=== PATIENT | male | born 1990 | race Caucasian/White ===

== ENCOUNTER 2017-03-25 01:28 | Emergency (ER) | payer BC ==
[~2017-03-25] VITALS: Ht 182.9 cm; Wt 81.6 kg
[~2017-03-25 01:28] MED LIST: KEFLEX 500MG.500 MG PO; NOVOLIN 70/30 710 ML SC
--- NOTE | 2017-03-25 01:57 | Emergency Room Report ---
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 N Clinical Suspician of Infection? N Mental Status: 1 - Regular (Normal Baseline) Sepsis Risk:Low Sepsis Risk Have you (or family members/close friends) recently traveled outside the [place]? N If Yes, where/when: Have you had exposure to infectious disease within the past month? N TB? Other? Specify: Source patient, RN notes reviewed, family, old records Exam Limitations no limitations Comment jamesok rt thumb tonight Cardiac Chest Pain Chest pain indicative of cardiac No Timing/Duration this evening Severity moderate ALLERGIES Coded Allergies: No Known Allergies (10/11/16) Home Medications Reported Medications INSULIN NPH HUM/REG INSULIN HM (Novolin 70-30 100 Unit/Ml Vial) 30 UNITS SC BID History Medical History General CAD? No Angina: No GA: No Hypertension? No Hyperlipidemia? No CHF? No DVT? No PE? No COPD? No Asthma? No Anemia? No GERD? No Gastric ulcers? No GI Bleed? No Hernia? No Thyroid Problems? No Hypothyroidism? No CVA? No Seizures? 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 No Renal Insuffiency? No End Stage Renal Disease? No UTI? No Stones? No BPH? No GB Disease: No Nephritic Syndrome? No Asplenia? No Hepatitis? No Sickle Cell Disease? No Arthritis? No Migraines? No Cataracts? No Glaucoma? No MRSA? No HIV? No TB? No Anxiety? No Depression? No Cancer? No Immunization Hx DT/Tetanus 1-4 Years Ago Surgical Hx Previous Surgery?N Social History Smoking Hx Smoker: Current Every Day Smoker Tobacco: Yes Type Cigarettes Packs/day < 1 Pack Alcohol Alcohol: Yes Drugs none Review of Systems All Other Systems Reviewed and Negative Constitutional denies fever Eyes denies drainage ENT denies: ear pain, epistaxis, throat pain. Respiratory denies cough, denies shortness of breath, denies wheezing Cardiovascular denies chest pain, denies syncope Gastrointestinal denies abdominal pain, denies diarrhea, denies vomiting Genitourinary denies: dysuria, frequency, hesitancy, hematuria. Musculoskeletal see HPI, denies back pain, joint pain, denies joint swelling, denies neck pain, other Skin denies rash Psychiatric/Neurological denies headache, denies seizure Physical Exam Vital Signs Vital Signs Date Time Temp Pulse Resp B/P Pulse O2 O2 Flow FiO2 Ox Delivery Rate 03/25 0144 97.8 96 18 105/60 99 - WBC >12,000 or <4,000 or 10% bands? 2 or more SIRS Criteria Met? B/P:105/60 MAP:75 Creatinine >2.0? UA output<0.5ml/kg/hr for 2 hrs? Platelet count >100,000? Lactate >2.0mmol/1? INR >1.2 or PTT > than 60 sec? Evidence of Organ Dysfunction? Provider documented clinical suspician of infection? N Sepsis Criteria Count: 1 Sepsis Risk: Low Sepsis Risk General Appearance no apparent distress Eye Exam - bilateral eye PERRL, bilateral eye EOMI Ear, Nose, Throat normal ENT inspection Neck supple Respiratory Status No: respiratory distress. 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 No Results/Orders Current Medication Orders Sig/Yonas Start time Last Medication Dose Route Stop Time Status Admin Lidocaine HCl 20 ML ONCE ONE 03/25 215 DC 03/25 SC 03/25 216 020 Lidocaine HCl 0 .STK-MED ONE 03/25 202 DC .ROUTE Procedures FB Removal (excluding Eyes) FB Removal Risks/benefits discussed with pt/guardian? Yes Location/Suspected object rt thumb/fishhook Anesthesia Lidocaine 1% Foreign Body (Not Eyes) Remove Simple. No: Complicated, Probing, Incision & Search, Cerumen spatula used, Irrigation ml-, Xray, No FB identified, Sterile dressing applied. Risk of retained FB explained to pt/guardian? Yes Departure Departure Time of Disposition 215 Disposition DC Home or Self Care(routine) Clinical Impression Primary Impression: Foreign body of thumb, right Condition STABLE Patient Instructions DI for Cellulitis -- Adult Additional Instructions keep clean and see pcp for follow up Discharge Counseling Counseled pt/family regarding diagnosis, medications/RX, follow up needs Prescriptions Current Visit Scripts CEPHALEXIN (Keflex 500MG Capsule) 500 MG PO Q8H #30 CAP SULFAMETHOXAZOLE/TRIMETHOPRIM (Sulfamethoxazole-Tmp Ds Tablet) 1 TAB PO BID #20 TAB ED Critical Care Critical Care No at 0223
[2017-03-25] MEDS ORDERED: KEFLEX 500MG.500 MG PO (02:21)
[2017-03-25] MEDS ORDERED: SEPTRA DS 800 M1 TAB PO (02:21)
[2017-03-25 02:32] VITALS: BP 121/79
--- OUTSIDE RECORDS SUMMARY | 2017-03-26 21:49 | External Medical Summary Rpt ---
Author Author , Organization [employer] Address Unknown Phone Unavailable Care Team Providers Care Hvac R Tech Name Role Phone [facility] Unavailable Unavailable APOTHECAR, [facility] Unavailable Unavailable MEDICAL CTR, [facility] IMTIAZ MILLER, Unavailable Unavailable IMTIAZ MILLER KEITH A, Unavailable Unavailable LUAN RODRIGUEZ SU, BRIONNA, SU, BRIONNA Unavailable Unavailable ASHLEY CHAN II, Unavailable Unavailable ASHLEY CHAN II, THOMAS J, Unavailable Unavailable RADHA GUERRERO [id number], Unavailable Unavailable [id number] [facility], Unavailable Unavailable [facility] VIOLET BLACK, Unavailable Unavailable VIOLET BLACK JEEMERITA [facility] Unavailable Unavailable HOSP, [facility] ROBERT KRISHNA, Unavailable Unavailable ROBERT KRISHNA [facility] Unavailable [facility], Unavailable Unavailable [facility] ROBERT PEARCE, Unavailable Unavailable ROBERT PEARCE Purpose Continuity of Care Document - 11-04-2008 through 2016 Problems Code Diagnosis DOS Provider Status 8820 OPEN WOUND 05-03-[address] [facility] ALONE W/O MENTION COMP E9203 ACCIDENT 05-02-2010 [facility] CAUSED BY N EMERGENCY KNIVES PHYS INC SWORDS AND DAGGERS 4611 ACUTE 03-26-2010 [facility] FRONTAL G [facility] SINUSITIS MEDICINE CTR 31372 ESOPHAGEAL 03-10-2010 [facility] REFLUX G [facility] MEDICINE CTR 5368 DYSPEPSIA&O 03-10-2010 [facility] THER SPEC G FAMILY DISORDERS MEDICINE FUNCTION CTR STOMACH 06697 UNS 01-19-2010 [facility] GASTRITIS&G G FAMILY ASTRODUODIT MEDICINE IS W/O CTR MENTION HEMORR 4619 ACUTE 10-19-2009 [facility] SINUSITIS, G FAMILY UNSPECIFIED MEDICINE CTR 4871 INFLUENZA 08-20-2009 [facility] WITH OTHER COMM[facility]ITY RESPIRATORY HOSP MANIFESTATI ONS 4878 INFLUENZA 08-20-2009 [facility] WITH OTHER G FAMILY MANIFESTATI MEDICINE ONS CTR 73351 ABDOMINAL 04-24-2009 RAMSES PAIN, MEDICAL UNSPECIFIED GROUP SITE 23106 PAIN IN 04-12-2009 JELANI JOINT, RADIOLOGY FOREARM 65999 NAUSEA 04-12-2009 [facility] ALONE N EMERGENCY PHYS INC 33406 OPEN WOUND 04-12-2009 [facility] WRIST REGIONAL WITHOUT MEDICAL CTR MENTION COMPLICATIO N 9593 INJURY 04-12-2009 [facility] OTHER&UNSPE N EMERGENCY CIFIED PHYS INC ELBOW FOREARM&WRI ST E8498 OTHER 04-12-[address] OF MEDICAL CTR OCCURRENCE E9060 DOG BITE 04-12-2009 [facility] N EMERGENCY PHYS INC 462 ACUTE 03-12-2009 [facility]NG[facility]IS [facility] 70170 NAUSEA WITH 02-10-2009 [facility] VOMITING [facility] ACCT 67837 DIARRHEA 02-10-2009 DHS/CO [facility] ACCT 7862 COUGH 11-13-2008 [facility] S60.351A SUPERFICIAL FOREIGN BODY OF RIGHT THUMB, INITIAL ENCOUNTER S61.219A LACERATION W/O FB OF UNSP FINGER W/O DAMAGE TO NAIL, INIT Medications Na ND Rx Da Fi Fi Am Da Di Ph RX Ph St me C No te ll ll ou ys ag ar # ys at rm s nt no ma ic us Or Da si cy ia de te s n re d NA 53 06 06 14 7 FA 69 CL Ac OR 74 -0 -0 .0 LL 87 IF ti OX 60 7- 8- 00 S 82 TO ve EN 19 20 20 RO N 00 10 10 AD KE 50 5 IT 0 PH H MG AR A MA TA CY BL ET CE 00 06 06 12 3 FA 69 CL Ac PH 14 -0 -0 .0 LL 87 IF ti AL 39 7- 8- 00 S 80 TO ve EX 89 20 20 RO N IN 70 10 10 AD KE 5 IT 50 PH H 0 AR A MG MA CY CA PS UL E OR 37 04 04 2 60 30 WH 61 HE Ac IL 00 -1 -1 .0 IT 61 NS ti OS 00 4- 4- 00 LE 27 ON ve EC 45 20 20 Y 50 10 10 PH PA OT 2 AR UL C MA C 20 CY .6 MG TA BL ET 00 04 04 2 60 30 WH 61 HE Ac 59 -1 -1 .0 IT 61 NS ti 12 4- 4- 00 LE 26 ON ve 22 20 20 Y 90 10 10 PH PA 1 AR UL MA C CY OR 00 02 03 1 30 5 WH 60 HE Ac OM 59 -2 -2 .0 IT 87 NS ti ET 15 3- 9- 00 LE 99 ON ve JACOBSON 30 20 20 Y ZI 71 10 10 PH PA NE 0 AR UL MA C 25 CY MG TA BL ET 60 11 12 00 24 7 WH 59 DO Ac 25 -2 -0 0. IT 67 NC ti 80 3- 3- 00 LE 20 ve 23 20 20 0 Y TE 91 09 09 PH R 6 AR TH MA OM CY J CE 68 11 12 00 30 10 WH 59 DO Ac PH 18 -2 -0 .0 IT 67 NC ti AL 00 3- 3- 00 LE 19 ve EX 12 20 20 Y TE IN 20 09 09 PH R 2 AR TH 50 MA OM 0 CY MG J CA PS UL E CI 00 09 10 00 7. 30 WH 58 HE Ac OR 06 -2 -0 50 IT 81 NS ti OD 58 5- 8- 0 LE 10 ON ve EX 53 20 20 Y 30 09 09 PH PA OT 2 AR UL IC MA C CY WALKER SP EN SI ON 53 09 10 00 60 15 WH 58 HE Ac 74 -2 -0 .0 IT 81 NS ti 60 5- 8- 00 LE 08 ON ve 13 20 20 Y 20 09 09 PH PA 5 AR UL MA C CY 60 09 10 00 18 7 WH 58 HE Ac 25 -2 -0 0. IT 81 NS ti 80 5- 8- 00 LE 09 ON ve 23 20 20 0 Y 91 09 09 PH PA 6 AR UL MA C CY AM 00 05 06 00 15 5 WH 57 MA Ac OX 09 -1 -0 .0 IT 13 RC ti -C 32 8- 4- 00 LE 50 UM ve LA 27 20 20 Y V 43 09 09 PH CH 50 4 AR AR 0- MA LE 12 CY S 5 L MG TA BL ET 00 05 06 00 20 20 WH 57 HE Ac 30 -2 -0 .0 IT 30 NS ti 03 8- 4- 00 LE 20 ON ve 04 20 20 Y 61 09 09 PH PA 3 AR UL MA C CY 00 04 05 00 14 14 BA 60 HE Ac 30 -1 -0 .0 PI 46 NS ti 03 6- 7- 00 TS 00 ON ve 70 20 20 T 3 20 09 09 RE PA 1 GI UL ON C AL AP OT HE CA RY 00 03 04 00 30 15 BA 60 HE Ac 09 -2 -0 .0 PI 45 NS ti 51 6- 9- 00 TS 05 ON ve 29 20 20 T 1 00 09 09 RE PA 6 GI UL ON C AL AP OT HE CA RY 00 03 04 00 30 30 BA 60 HE Ac 30 -2 -0 .0 PI 45 NS ti 03 6- 9- 00 TS 05 ON ve 04 20 20 T 2 61 09 09 RE PA 3 GI UL ON C AL AP OT HE CA RY CE 00 03 04 00 20 10 BA 60 HE Ac FP 09 -2 -0 .0 PI 45 NS ti RO 31 6 9 00 TS 04 ON ve ZI 07 20 20 T 9 L 85 09 09 RE PA 50 3 GI UL 0 ON C MG AL TA AP BL OT ET HE CA RY 49 03 04 00 16 30 BA 60 HE Ac 88 -2 -0 .0 PI 45 NS ti 40 6 9 00 TS 05 ON ve 39 20 20 T 0 87 09 09 RE PA 7 GI UL ON C AL AP OT HE CA RY ME 59 12 [address] 16 CO Ac TH 74 -2 -0 .0 IV 81 BB ti YL 60 6- 1- 00 E- 85 ve OR 00 20 20 IN 9 AM ED 10 08 09 -P Y NI 3 JACOBSON SO RM LO AC NE Y 4 MG DO SE PK FL 00 12 [address] 16 BA Ac UT 05 -1 -1 .0 IV 80 RG ti IC 43 0- 8- 00 E- 53 O ve 27 20 20 IN 2 BA ON 08 04 08 -P RB E 9 JACOBSON AR OR RM A OP AC R Y 50 MC G SP RA Y 60 12 [address] 16 BA Ac 25 -1 -1 0. IV 80 RG ti 80 0- 8- 00 E- 53 O ve 23 20 20 0 IN 3 BA 91 08 08 -P RB 6 JACOBSON AR RM A AC R Y 00 12 [address] 16 BA Ac 02 -1 -1 .0 IV 80 RG ti 96 0- 8- 00 E- 53 O ve 09 20 20 IN 4 BA 66 08 08 -P RB 0 JACOBSON AR RM A AC R Y Procedures Procedure DOS Code Location Performer Comment SIMPLE 16956 [facility] REPAIR 0 REGIONAL REGIONAL SCALP/NEC MEDICAL MEDICAL K/AX/TEE CTR CTR T/TRUNK 2.5CM/< CLOSURE 8659 [facility] AMISH SKIN&SUBC 0 REGIONAL REGIONAL UTANEOUS MEDICAL MEDICAL [place] [address] [facility] INFLUENZA 9 COMMUNITY COMMUNITY A/B EACH HOSP HOSP HPYLORI 48991 RAMSES PEARCE, BREATH 9 MEDICAL ROBERT Carrington ANAL GROUP UREASE ACT NON-RADAC T ISTOPE HPYLORI 83334 RAMSES PEARCE, DRUG 9 MEDICAL ROBERT H ADMINISTR GROUP ATION RADEX 97111 JELANI CHAN WRIST 9 RADIOLOGY II, COMPLETE ASHLEY T MINIMUM 3 VIEWS IAADIADOO 34675 [facility] 9 [facility] CCUS GROUP A IAADIADOO 50368 [facility] 9 [facility] CCUS GROUP A COLLECTIO 97577 [facility] N VENOUS 9 [facility] BLOOD [facility]OSP HOSP VENIPUNCT URE ANTIBODY 48037 [facility] HELICOBAC [address] [place] [address] [facility] INFLUENZA 9 COMMUNITY COMMUNITY A/B EACH HOSP HOSP RADIOLOGI 75731 BRIONNA DOHERTY EXAM 8 NDON CHEST 2 MEDICAL VIEWS ASSOCIATE FRONTAL&L S ATERAL Encounters Encounter Start End Date Code Location Performer Type Date EMERGENCY 75947 [facility] 0 0 REGIONAL [facility] MEDICAL T VISIT CTR MODERATE SEVERITY HOSPITAL [facility] - 0 [facility] OFFICE 87472 ZARA LANGFORDPATIEN 0 0 URG , RADHA T VISIT FAMILY J 15 MEDICINE MINUTES CTR OFFICE 18046 SHAKIRA DUARTE 0 0 URG VIOLET C T VISIT FAMILY 15 MEDICINE MINUTES CTR OFFICE 10410 SHAKIRA DUARTE 0 0 URG VIOLET C T VISIT FAMILY 15 MEDICINE MINUTES CTR OFFICE 55285 ZARA ROSENBERG 9 9 URG , RADHA T VISIT FAMILY J 10 MEDICINE MINUTES CTR OFFICE 60235 SHAKIRA DUARTE 9 9 URG VIOLET C T VISIT FAMILY 15 MEDICINE MINUTES [facility] H[facility]PITAL JELL[facility] - OTHER 9 9 COMMUNITY HOSP OFFICE 15052 SHAKIRA DUARTE 9 9 URG VIOLET C T VISIT FAMILY 15 MEDICINE MINUTES [facility] H[facility]PITAL AMISH - 9 9 REGIONAL OUTPATIEN MEDICAL T [facility] 8[address] [facility] 9 [facility] EMERGENCY T VISIT PHYS INC MODERATE SEVERITY OFFICE 55435 SHAKIRA DUARTE 9 9 URG VIOLET C T VISIT FAMILY 15 MEDICINE MINUTES [facility] JELLICO - 9 9 COMMUNITY OUTPATIEN HOSP T [facility] JELLICO - 9 9 COMMUNITY OUTPATIEN HOSP T OFFICE 88844 SHAKIRA DUARTE 9 9 URG VIOLET C T VISIT FAMILY 15 MEDICINE MINUTES CTR OFFICE 98140 DHS/CO ANGÉLICA OUTPATIEN 9 9 HEALTH CO HIGH T VISIT [employer] 15 BANK ACCT MINUTES OFFICE 00665 BRIONNA DOHERTY OUTPATIEN 8 8 NDON T VISIT MEDICAL 15 ASSOCIATE MINUTES S OFFICE 35386 SHAKIRA NICK 8 8 NDON IMTIAZ Melara NEW 30 MEDICAL MINUTES ASSOCIATE S
--- OUTSIDE RECORDS SUMMARY | 2017-03-26 21:49 | External Medical Summary Rpt ---
Author Author , Organization [employer] Address Unknown Phone Unavailable Care Team Providers Care Cardiac Nurse Name Role Phone [facility] Unavailable Unavailable APOTHECAR, [facility] Unavailable Unavailable MEDICAL CTR, [facility] IMTIAZ MILLER, Unavailable Unavailable IMTIAZ MILLER KEITH A, Unavailable Unavailable LUAN RODRIGUEZ SU, BRIONNA, SU, BRIONNA Unavailable Unavailable ASHLEY CHAN II, Unavailable Unavailable ASHLEY CHAN II, THOMAS J, Unavailable Unavailable RADHA GUERRERO [id number], Unavailable Unavailable [id number] [facility], Unavailable Unavailable [facility] VIOLET BLACK, Unavailable Unavailable VIOLET BLACK JEEMERITA [facility] Unavailable Unavailable HOSP, [facility] ROBERT KRISHNA, Unavailable Unavailable ROBERT KRISHNA [facility] Unavailable [facility], Unavailable Unavailable [facility] ROBERT PEARCE, Unavailable Unavailable ROBERT PEARCE Purpose Continuity of Care Document - 11-04-2008 through 2016 Problems Code Diagnosis DOS Provider Status 8820 OPEN WOUND 05-03-2010 [facility] CTR ALONE W/O MENTION COMP E9203 ACCIDENT 05-02-2010 [facility] CAUSED BY N EMERGENCY KNIVES PHYS INC SWORDS AND DAGGERS 4611 ACUTE 03-26-2010 [facility] FRONTAL G FAMILY SINUSITIS MEDICINE CTR 98318 ESOPHAGEAL 03-10-2010 [facility] REFLUX G FAMILY MEDICINE CTR 5368 DYSPEPSIA&O 03-10-2010 [facility] THER SPEC G FAMILY DISORDERS MEDICINE FUNCTION CTR STOMACH 52279 UNS 01-19-2010 [facility] GASTRITIS&G G FAMILY ASTRODUODIT MEDICINE IS W/O CTR MENTION HEMORR 4619 ACUTE 10-19-2009 [facility] SINUSITIS, G FAMILY UNSPECIFIED MEDICINE CTR 4871 INFLUENZA 08-20-2009 [facility] WITH OTHER COMMUNITY RESPIRATORY HOSP MANIFESTATI ONS 4878 INFLUENZA 08-20-2009 [facility] WITH OTHER G FAMILY MANIFESTATI MEDICINE ONS CTR 33552 ABDOMINAL 04-24-2009 [facility] PAIN, MEDICAL UNSPECIFIED GROUP SITE 43034 PAIN IN 04-12-2009 JELANI JOINT, RADIOLOGY FOREARM 87597 NAUSEA 04-12-2009 [facility] ALONE N EMERGENCY PHYS INC 89181 OPEN WOUND 04-12-2009 [facility] WRIST REGIONAL WITHOUT MEDICAL CTR MENTION COMPLICATIO N 9593 INJURY 04-12-2009 [facility] OTHER&UNSPE N EMERGENCY CIFIED PHYS INC ELBOW FOREARM&WRI ST E8498 OTHER 04-12-[address] OF MEDICAL CTR OCCURRENCE E9060 DOG BITE 04-12-2009 [facility] N EMERGENCY PHYS INC 462 ACUTE 03-12-2009 [facility] 82214 NAUSEA WITH 02-10-2009 DHS/CO VOMITING [facility] ACCT 88348 DIARRHEA 02-10-2009 DHS/CO [facility] ACCT 7862 COUGH 11-13-2008 [facility] [...] 06 14 7 FA 69 CL Ac OH 74 -0 -0 .0 LL 87 IF [...] MG MA CY CA PS UL E OH 37 04 04 2 60 30 WH [...] PA 1 AR UL MA C CY OH 00 02 03 1 30 5 WH [...] 00 7. 30 WH 58 HE Ac OH 06 -2 -0 50 IT 81 NS [...] 60 6- 1- 00 E- 85 ve OH 00 20 20 IN 9 AM ED [...] 08 -P RB E 9 JACOBSON AR OH RM A OP AC R Y 50 [...] Procedure DOS Code Location Performer Comment SIMPLE 54743 ALEVISM ALEVISM REPAIR 0 REGIONAL REGIONAL SCALP/NEC MEDICAL MEDICAL K/AX/TEE CTR CTR T/TRUNK 2.5CM/< CLOSURE 8659 ALEVISM ALEVISM SKIN&SUBC 0 REGIONAL REGIONAL UTANEOUS MEDICAL MEDICAL [place]ISS[place] [address] [facility] JE[facility] INFLUENZA 9 COMMUNITY COMMUNITY A/B EACH HOSP HOSP HPYLORI 01966 RAMSES PEARCE, BREATH 9 MEDICAL ROBERT Carrington ANAL GROUP UREASE ACT NON-RADAC T ISTOPE HPYLORI 52909 RAMSES PEARCE, DRUG 9 MEDICAL ROBERT H ADMINISTR GROUP ATION RADEX 97013 JELANI CHAN WRIST 9 RADIOLOGY II, COMPLETE ASHLEY T MINIMUM 3 VIEWS IAADIADOO 79435 [facility] 9 [facility] CCUS GROUP A IAADIADOO 65150 [facility] 9 [facility] CCUS GROUP A COLLECTIO 49372 [facility] N VENOUS 9 [facility] BLOOD HOSP HOSP VENIPUNCT URE ANTIBODY 67900 [facility] HELICOBAC [address] [place] [address] [facility]LL[facility] INFLUENZA 9 COMMUNITY COMMUNITY A/B EACH HOSP HOSP RADIOLOGI 19627 BRIONNA DOHERTY EXAM 8 NDON CHEST 2 MEDICAL VIEWS ASSOCIATE FRONTAL&L S ATERAL Encounters Encounter Start End Date Code Location Performer Type Date EMERGENCY 54462 ALEVISM 0 0 REGIONAL [facility] MEDICAL T VISIT CTR MODERATE SEVERITY [facility]OSPITAL [facility] OFF[facility] 14054 ZARA LANGFORDPATIEN 0 0 URG , RADHA T VISIT FAMILY J 15 MEDICINE MINUTES CTR OFFICE 65140 SHAKIRA DUARTE 0 0 URG VIOLET C T VISIT FAMILY 15 MEDICINE MINUTES CTR OFFICE 72456 SHAKIRA DUARTE 0 0 URG VIOLET C T VISIT FAMILY 15 MEDICINE MINUTES CTR OFFICE 42480 ZARA ROSENBERG 9 9 URG , RADHA T VISIT FAMILY J 10 MEDICINE MINUTES CTR OFFICE 09840 SHAKIRA DUARTE 9 9 URG VIOLET C T VISIT FAMILY 15 MEDICINE MINUTES [facility] JELLICO - OTHER 9 9 COMMUNITY HOSP OFFICE 16237 SHAKIRA DUARTE 9 9 URG VIOLET C T VISIT FAMILY 15 MEDICINE MINUTES [facility] ALEVISM - 9 9 REGIONAL OUTPATIEN MEDICAL T [facility] EMERGENCY [address] [facility], 9 9 [facility] EMERGENCY T VISIT PHYS INC MODERATE SEVERITY OFFICE 97263 SHAKIRA DUARTE 9 9 URG VIOLET C T VISIT FAMILY 15 MEDICINE MINUTES [facility] JELLICO - 9 9 COMMUNITY OUTPATIEN HOSP T [facility] JELLICO - 9 9 COMMUNITY OUTPATIEN HOSP T OFFICE 36984 SHAKIRA DUARTE 9 9 URG VIOLET C T VISIT FAMILY 15 MEDICINE MINUTES CTR OFFICE 97703 DHS/CO ANGÉLICA OUTPATIEN 9 9 HEALTH CO HIGH T VISIT [employer] 15 BANK ACCT MINUTES OFFICE 69640 BRIONNA DOHERTY OUTPATIEN 8 8 NDON T VISIT MEDICAL 15 ASSOCIATE MINUTES S OFFICE 46066 SHAKIRA NICK 8 8 NDON IMTIAZ Melara NEW 30 MEDICAL MINUTES ASSOCIATE S
--- OUTSIDE RECORDS SUMMARY | 2017-03-26 21:50 | External Medical Summary Rpt ---
Author Author , Organization [employer] Address Unknown Phone Unavailable Care Team Providers Care Legal Service Specialist Name Role Phone [facility] Unavailable Unavailable [facility], [facility] Unavailable Unavailable [facility], [facility] IMTIAZ MILLER, Unavailable Unavailable IMTIAZ MILLER KEITH A, Unavailable Unavailable LUAN RODRIGUEZ SU, BRIONNA, SU, BRIONNA Unavailable Unavailable ASHLEY CHAN II, Unavailable Unavailable ASHLEY CHAN II, THOMAS J, Unavailable Unavailable RADHA GUERRERO [id number], Unavailable Unavailable [id number] [facility], Unavailable Unavailable [facility] VIOLET LBACK, Unavailable Unavailable VIOLET BLACK [facility] Unavailable Unavailable HOSP, [facility] ROBERT KRISHNA, Unavailable Unavailable ROBERT KRISHNA [facility] Unavailable [facility] ANGÉLICA [facility], Unavailable Unavailable [facility] ORBERT PEARCE, Unavailable Unavailable ROBERT PEARCE Purpose Continuity of Care Document - 11-04-2008 through 2016 Problems Code Diagnosis DOS Provider Status 8820 OPEN WOUND 05-03-2010 [facility] ALONE W/O MENTION COMP E9203 ACCIDENT 05-02-2010 [facility] CAUSED BY N EMERGENCY KNIVES PHYS INC SWORDS AND DAGGERS 4611 ACUTE 03-26-2010 [facility] FRONTAL G [facility] SINUSITIS MEDICINE CTR 60183 ESOPHAGEAL 03-10-2010 [facility] REFLUX G [facility] MEDICINE CTR 5368 DYSPEPSIA&O 03-10-2010 [facility] THER SPEC G FAMILY DISORDERS MEDICINE FUNCTION CTR STOMACH 85009 UNS 01-19-2010 [facility] GASTRITIS&G G FAMILY ASTRODUODIT MEDICINE IS W/O CTR MENTION HEMORR 4619 ACUTE 10-19-2009 [facility] SINUSITIS, G FAMILY UNSPECIFIED MEDICINE CTR 4871 INFLUENZA 08-20-2009 [facility] WITH OTHER COMM[facility]ITY RESPIRATORY HOSP MANIFESTATI ONS 4878 INFLUENZA 08-20-2009 [facility] WITH OTHER G FAMILY MANIFESTATI MEDICINE ONS CTR 41926 ABDOMINAL 04-24-2009 RAMSES PAIN, MEDICAL UNSPECIFIED GROUP SITE 64097 PAIN IN 04-12-2009 JELANI JOINT, RADIOLOGY FOREARM 01517 NAUSEA 04-12-2009 [facility] ALONE N EMERGENCY PHYS INC 12806 OPEN WOUND 04-12-2009 [facility] WRIST REGIONAL WITHOUT MEDICAL CTR MENTION COMPLICATIO N 9593 INJURY 04-12-2009 [facility] OTHER&UNSPE N EMERGENCY CIFIED PHYS INC ELBOW FOREARM&WRI ST E8498 OTHER 04-12-[address] OF MEDICAL CTR OCCURRENCE E9060 DOG BITE 04-12-2009 [facility] N EMERGENCY PHYS INC 462 ACUTE 03-12-2009 [facility] 61501 NAUSEA WITH 02-10-2009 [facility] VOMITING [facility] ACCT 67244 DIARRHEA 02-10-2009 [facility] ACCT 7862 COUGH 11-13-2008 [facility] Medications Na ND Rx Da Fi Fi Am Da Di Ph RX Ph St me C No te ll ll ou ys ag ar # ys at rm s nt no ma ic us Or Da si cy ia de te s n re d CE 00 06 06 12 3 FA 69 CL Ac PH 14 -0 -0 .0 LL 87 IF ti AL 39 7- 8- 00 S 80 TO ve EX 89 20 20 RO N IN 70 10 10 AD KE 5 IT 50 PH H 0 AR A MG MA CY CA PS UL E NA 53 06 06 14 7 FA 69 CL Ac CO 74 -0 -0 .0 LL 87 IF ti OX 60 7- 8- 00 S 82 TO ve EN 19 20 20 RO N 00 10 10 AD KE 50 5 IT 0 PH H MG AR A MA TA CY BL ET 00 04 04 2 60 30 WH 61 HE Ac 59 -1 -1 .0 IT 61 NS ti 12 4- 4- 00 LE 26 ON ve 22 20 20 Y 90 10 10 PH PA 1 AR UL MA C CY CO 37 04 04 2 60 30 WH 61 HE Ac IL 00 -1 -1 .0 IT 61 NS ti OS 00 4- 4- 00 LE 27 ON ve EC 45 20 20 Y 50 10 10 PH PA OT 2 AR UL C MA C 20 CY .6 MG TA BL ET CO 00 02 03 1 30 5 WH 60 HE Ac OM 59 -2 -2 .0 IT 87 NS ti ET 15 3- 9- 00 LE 99 ON ve JACOBSON 30 20 20 Y ZI 71 10 10 PH PA NE 0 AR UL MA C 25 CY MG TA BL ET CE 68 11 12 00 30 10 WH 59 DO Ac PH 18 -2 -0 .0 IT 67 NC ti AL 00 3- 3- 00 LE 19 ve EX 12 20 20 Y TE IN 20 09 09 PH R 2 AR TH 50 MA OM 0 CY MG J CA PS UL E 60 11 12 00 24 7 WH 59 DO Ac 25 -2 -0 0. IT 67 NC ti 80 3- 3- 00 LE 20 ve 23 20 20 0 Y TE 91 09 09 PH R 6 AR TH MA OM CY J 60 09 10 00 18 7 WH 58 HE Ac 25 -2 -0 0. IT 81 NS ti 80 5- 8- 00 LE 09 ON ve 23 20 20 0 Y 91 09 09 PH PA 6 AR UL MA C CY 53 09 10 00 60 15 WH 58 HE Ac 74 -2 -0 .0 IT 81 NS ti 60 5- 8- 00 LE 08 ON ve 13 20 20 Y 20 09 09 PH PA 5 AR UL MA C CY CI 00 09 10 00 7. 30 WH 58 HE Ac CO 06 -2 -0 50 IT 81 NS ti OD 58 5- 8- 0 LE 10 ON ve EX 53 20 20 Y 30 09 09 PH PA OT 2 AR UL IC MA C CY WALKER SP EN SI ON 00 05 06 00 20 20 WH 57 HE Ac 30 -2 -0 .0 IT 30 NS ti 03 8- 4- 00 LE 20 ON ve 04 20 20 Y 61 09 09 PH PA 3 AR UL MA C CY AM 00 05 06 00 15 5 WH 57 MA Ac OX 09 -1 -0 .0 IT 13 RC ti -C 32 8- 4- 00 LE 50 UM ve LA 27 20 20 Y V 43 09 09 PH CH 50 4 AR AR 0- MA LE 12 CY S 5 L MG TA BL ET 00 04 05 00 14 14 BA 60 HE Ac 30 -1 -0 .0 PI 46 NS ti 03 6- 7- 00 TS 00 ON ve 70 20 20 T 3 20 09 09 RE PA 1 GI UL ON C AL AP OT HE CA RY 49 03 04 00 16 30 BA 60 HE Ac 88 -2 -0 .0 PI 45 NS ti 40 6- 9- 00 TS 05 ON ve 39 20 20 T 0 87 09 09 RE PA 7 GI UL ON C AL AP OT HE CA RY CE 00 03 04 00 20 10 BA 60 HE Ac FP 09 -2 -0 .0 PI 45 NS ti RO 31 6- 9- 00 TS 04 ON ve ZI 07 20 20 T 9 L 85 09 09 RE PA 50 3 GI UL 0 ON C MG AL TA AP BL OT ET HE CA RY 00 03 04 00 [...] 60 6- 1- 00 E- 85 ve CO 00 20 20 IN 9 AM ED 10 08 09 -P Y NI 3 JACOBSON SO RM LO AC NE Y 4 MG DO SE PK 00 12 [address] 16 BA Ac 02 -1 -1 .0 IV 80 RG ti 96 0- 8- 00 E- 53 O ve 09 20 20 IN 4 BA 66 08 08 -P RB 0 JACOBSON AR RM A AC R Y 60 12 [address] 16 BA Ac 25 -1 -1 0. IV 80 RG ti 80 0- 8- 00 E- 53 O ve 23 20 20 0 IN 3 BA 91 08 08 -P RB 6 JACOBSON AR RM A AC R Y FL 00 12 [address] 16 BA Ac UT 05 -1 -1 .0 IV 80 RG ti IC 43 0- 8- 00 E- 53 O ve 27 20 20 IN 2 BA ON 08 08 -P RB E 9 JACOBSON AR CO RM A OP AC R Y 50 MC G SP RA Y Procedures Procedure DOS Code Location Performer Comment SIMPLE 30158 [facility], REPAIR 0 TONY LUAN A SCALP/NEC EMERGENCY K/AX/TEE PHYS INC T/TRUNK 2.5CM/< CLOSURE 8659 [facility] SKIN&SUBC 0 REGIONAL REGIONAL UTANEOUS MEDICAL MEDICAL [place] [address] [facility] INFLUENZA 9 COMMUNITY COMMUNITY A/B EACH HOSP HOSP HPYLORI 00218 RAMSES PEARCE, DRUG 9 MEDICAL ROBERT H ADMINISTR GROUP ATION HPYLORI 87352 RAMSES PEARCE, BREATH 9 MEDICAL ROBERT H ANAL GROUP UREASE ACT NON-RADAC T ISTOPE RADEX 02311 [facility] WRIST 9 [facility]IONAL [facility] COMPLETE MEDICAL MEDICAL MINIMUM 3 CTR CTR VIEWS IAADIADOO 46478 [facility] 9 [facility] CCUS GROUP A IAADIADOO 80949 [facility] 9 [facility] [place] [address] [facility] INFLUENZA 9 COMMUNITY COMMUNITY A/B EACH HOSP HOSP ANTIBODY 78430 [facility] HELICOBAC [address] HOSP HOSP PYLORI COLLECTIO 88886 [facility] N VENOUS 9 COMMUNITY COMMUNITY BLOOD HOSP HOSP VENIPUNCT URE RADIOLOGI 42070 BRIONNA DOHERTY EXAM 8 NDON CHEST 2 MEDICAL VIEWS ASSOCIATE FRONTAL&L S ATERAL Encounters Encounter Start End Date Code Location Performer Type Date HOSPITAL [facility] - 0 0 REGIONAL OUTPATIEN MEDICAL T CTR EMERGENCY 77665 [facility], 0 0 TONY ROLAND A [facility] EMERGENCY T VISIT PHYS INC MODERATE SEVERITY OFFICE 35295 ZARA ROSENBERG 0 0 URG RADHA T VISIT FAMILY J 15 MEDICINE MINUTES CTR OFFICE 07063 SHAKIRA DUARTE 0 0 URG VIOLET C T VISIT FAMILY 15 MEDICINE MINUTES CTR OFFICE 68818 SHAKIRA DUARTE 0 0 URG VIOLET C T VISIT FAMILY 15 MEDICINE MINUTES CTR OFFICE 60313 ZARA ROSENBERG 9 9 URG RADHA T VISIT FAMILY J 10 MEDICINE MINUTES CTR OFFICE 31319 SHAKIRA DUARTE 9 9 URG VIOLET C T VISIT FAMILY 15 MEDICINE MINUTES [facility] JELL[facility] - OTHER 9 9 COMMUNITY HOSP OFFICE 21007 SHAKIRA DUARTE 9 9 URG VIOLET C T VISIT FAMILY 15 MEDICINE MINUTES [facility] H[facility]PITAL AMISH - 9 9 REGIONAL OUTPATIEN MEDICAL T CTR EMERGENCY 72071 [facility], 9 9 TONY ROBERT L [facility] EMERGENCY T VISIT PHYS INC MODERATE SEVERITY HOSPITAL [facility] - 9 9 COMMUNITY OUTPATIEN HOSP T OFFICE 50321 SHAKIRA DUARTE 9 9 URG VIOLET C T VISIT FAMILY 15 MEDICINE MINUTES [facility] HOSPITAL JEFRANCINEICO - 9 9 COMMUNITY OUTPATIEN HOSP T OFFICE 81981 SHAKIRA DUARTE 9 9 URG VIOLET C T VISIT FAMILY 15 MEDICINE MINUTES CTR OFFICE 34350 DHS/CO ANGÉLICA OUTPATIEN 9 9 HEALTH CO HIGH T VISIT [employer] 15 BANK ACCT MINUTES OFFICE 96883 BRIONNA DOHERTY 8 8 NDON T VISIT MEDICAL 15 ASSOCIATE MINUTES S OFFICE 91411 SHAKIRA NICK 8 8 NDON IMTIAZ LEVY 30 MEDICAL MINUTES ASSOCIATE S
--- OUTSIDE RECORDS SUMMARY | 2017-03-26 21:50 | External Medical Summary Rpt ---
Author Author LEDA Gregorio, [employer] Organization [employer] Address Unknown Phone Unavailable
--- OUTSIDE RECORDS SUMMARY | 2017-03-26 21:50 | External Medical Summary Rpt ---
Demographics Preferred Language Kuwaiti Marital Status Unknown Orthodoxy Affiliation Unknown Race Unknown Ethnic Group Unknown Author Author , Organization [employer] Address Unknown Phone Unavailable Purpose Continuity of Care Document - through 2016 Immunization No patient found.
--- OUTSIDE RECORDS SUMMARY | 2017-03-26 21:50 | External Medical Summary Rpt ---
Demographics Preferred Language Serbian Marital Status Unknown Judaism Affiliation Unknown Race Unknown Ethnic Group Unknown Author Author , Organization [employer] Address Unknown Phone Unavailable Purpose Continuity of Care Document - through 2016 Immunization No patient found.
--- OUTSIDE RECORDS SUMMARY | 2017-03-26 21:50 | External Medical Summary Rpt ---
Author Author LEDA Gregorio, [employer] Organization [employer] Address Unknown Phone Unavailable
--- OUTSIDE RECORDS SUMMARY | 2017-03-26 21:50 | External Medical Summary Rpt ---
Author Author , Organization [employer] Address Unknown Phone Unavailable Care Team Providers Care Oracle Security Consultant Name Role Phone [facility] Unavailable Unavailable APOTHECAR, [facility] Unavailable Unavailable [facility], [facility] IMTIAZ MILLER, Unavailable Unavailable IMTIAZ MILLER KEITH A, Unavailable Unavailable LUAN RODRIGUEZ SU, BRIONNA, SU, BRIONNA Unavailable Unavailable ASHLEY CHAN II, Unavailable Unavailable ASHLEY CHAN II, THOMAS J, Unavailable Unavailable RADHA GUERRERO [id number], Unavailable Unavailable [id number] [facility], Unavailable Unavailable [facility] VIOLET BLACK, Unavailable Unavailable VIOLET BLACK [facility] Unavailable Unavailable HOSP, [facility] ROBERT KRISHNA, Unavailable Unavailable ROBERT KRISHNA [facility] Unavailable [facility] ANGÉLICA [facility], Unavailable Unavailable [facility] ROBERT PEARCE, Unavailable Unavailable ROBERT PEARCE Purpose Continuity of Care Document - 11-04-2008 through 2016 Problems Code Diagnosis DOS Provider Status 8820 OPEN WOUND 05-03-2010 [facility] NO REGIONAL PURCHASE MEDICAL CTR ALONE W/O MENTION COMP E9203 ACCIDENT 05-02-2010 [facility] CAUSED BY N EMERGENCY KNIVES PHYS INC SWORDS AND DAGGERS 4611 ACUTE 03-26-2010 [facility] FRONTAL G FAMILY SINUSITIS MEDICINE CTR 20092 ESOPHAGEAL 03-10-2010 [facility] REFLUX G FAMILY MEDICINE CTR 5368 DYSPEPSIA&O 03-10-2010 [facility] THER SPEC G FAMILY DISORDERS MEDICINE FUNCTION CTR STOMACH 89649 UNS 01-19-2010 [facility] GASTRITIS&G G FAMILY ASTRODUODIT MEDICINE IS W/O CTR MENTION HEMORR 4619 ACUTE 10-19-2009 [facility] SINUSITIS, G FAMILY UNSPECIFIED MEDICINE CTR 4871 INFLUENZA 08-20-2009 [facility] WITH OTHER COMMUNITY RESPIRATORY HOSP MANIFESTATI ONS 4878 INFLUENZA 08-20-2009 [facility] WITH OTHER G FAMILY MANIFESTATI MEDICINE ONS CTR 98135 ABDOMINAL 04-24-2009 RAMSES PAIN, MEDICAL UNSPECIFIED GROUP SITE 42474 PAIN IN 04-12-2009 JELANI JOINT, RADIOLOGY FOREARM 65476 NAUSEA 04-12-2009 [facility] ALONE N EMERGENCY PHYS INC 68049 OPEN WOUND 04-12-2009 [facility] WRIST REGIONAL WITHOUT MEDICAL CTR MENTION COMPLICATIO N 9593 INJURY 04-12-2009 [facility] OTHER&UNSPE N EMERGENCY CIFIED PHYS INC ELBOW FOREARM&WRI ST E8498 OTHER 04-12-[address] OF MEDICAL CTR OCCURRENCE E9060 DOG BITE 04-12-2009 [facility] N EMERGENCY PHYS INC 462 ACUTE 03-12-2009 [facility]NG[facility]IS [facility] 38689 NAUSEA WITH 02-10-2009 [facility] VOMITING [facility] ACCT 43947 DIARRHEA 02-10-2009 [facility] ACCT 7862 COUGH 11-13-2008 SAL ON MEDICAL [...] 06 14 7 FA 69 CL Ac MT 74 -0 -0 .0 LL 87 IF [...] PA 1 AR UL MA C CY MT 37 04 04 2 60 30 WH 61 HE Ac IL 00 -1 -1 .0 IT 61 NS ti OS 00 4- 4- 00 LE 27 ON ve EC 45 20 20 Y 50 10 10 PH PA OT 2 AR UL C MA C 20 CY .6 MG TA BL ET MT 00 02 03 1 30 5 WH [...] 00 7. 30 WH 58 HE Ac MT 06 -2 -0 50 IT 81 NS [...] 60 6- 1- 00 E- 85 ve MT 00 20 20 IN 9 AM ED [...] 08 -P RB E 9 JACOBSON AR MT RM A OP AC R Y 50 MC G SP RA Y Procedures Procedure DOS Code Location Performer Comment SIMPLE 25109 [facility], REPAIR 0 TONY LUAN A SCALP/NEC EMERGENCY K/AX/TEE PHYS INC T/TRUNK 2.5CM/< CLOSURE 8659 [facility] SKIN&SUBC 0 REGIONAL REGIONAL UTANEOUS MEDICAL MEDICAL [place] [address] [facility] INFLUENZA 9 COMMUNITY COMMUNITY A/B EACH HOSP HOSP HPYLORI 94955 RAMSES PEARCE, DRUG 9 MEDICAL ROBERT H ADMINISTR GROUP ATION HPYLORI 40370 RAMSES PEARCE, BREATH 9 MEDICAL ROBERT H ANAL GROUP UREASE ACT NON-RADAC T ISTOPE RADEX 81457 [facility]ASTRIAN ZOROASTRIAN WRIST 9 REGIONAL [facility] COMPLETE MEDICAL MEDICAL MINIMUM 3 CTR CTR VIEWS IAADIADOO 95229 [facility] JELLICO 9 [facility]ITY COMM[facility] HOSP CCUS GROUP A IAADIADOO 54688 [facility] JELLICO 9 [facility]ITY [facility] [place] [address] [facility] INFLUENZA 9 COMMUNITY COMMUNITY A/B EACH HOSP HOSP ANTIBODY 03526 [facility] HELICOBAC [address] HOSP HOSP PYLORI COLLECTIO 85439 [facility]LL[facility] N VENOUS 9 COMMUNITY COMMUNITY BLOOD HOSP HOSP VENIPUNCT URE RADIOLOGI 11946 BRIONNA DOHERTY EXAM 8 NDON CHEST 2 MEDICAL VIEWS ASSOCIATE FRONTAL&L S ATERAL Encounters Encounter Start End Date Code Location Performer Type Date HOSPITAL [facility]AN - 0 0 REGIONAL OUTPATIEN MEDICAL T CTR EMERGENCY 00943 [facility], 0 0 TONY ROLAND A [facility] EMERGENCY T VISIT PHYS INC MODERATE SEVERITY OFFICE 37489 ZARA ROSENBERG 0 0 URG RADHA T VISIT FAMILY J 15 MEDICINE MINUTES CTR OFFICE 51953 SHAKIRA DUARTE 0 0 URG VIOLET C T VISIT FAMILY 15 MEDICINE MINUTES CTR OFFICE 34349 SHAKIRA DUARTE 0 0 URG VIOLET C T VISIT FAMILY 15 MEDICINE MINUTES CTR OFFICE 85271 ZARA ROSENBERG 9 9 URG RADHA T VISIT FAMILY J 10 MEDICINE MINUTES CTR OFFICE 87928 SHAKIRA DUARTE 9 9 URG VIOLET C T VISIT FAMILY 15 MEDICINE MINUTES [facility] JELLICO - OTHER 9 9 COMMUNITY HOSP OFFICE 59400 SHAKIRA DUARTE 9 9 URG VIOLET C T VISIT FAMILY 15 MEDICINE MINUTES [facility] ZOROASTRIAN - 9 9 REGIONAL OUTPATIEN MEDICAL T CTR EMERGENCY 76142 [facility], 9 9 TONY ROBERT L [facility] EMERGENCY T VISIT PHYS INC MODERATE SEVERITY HOSPITAL [facility] - 9 9 COMM[facility]ITY OUTPATIEN HOSP T OFFICE 03131 SHAKIRA DUARTE 9 9 URG VIOLET C T VISIT FAMILY 15 MEDICINE MINUTES [facility] JEFRANCINEICO - 9 9 COMMUNITY OUTPATIEN HOSP T OFFICE 23178 SHAKIRA DUARTE 9 9 URG VIOLET C T VISIT FAMILY 15 MEDICINE MINUTES CTR OFFICE 83067 [facility]/CO ANGÉLICA OUTPATIEN 9 9 HEALTH CO HIGH T VISIT [employer] 15 BANK ACCT MINUTES OFFICE 90137 BRIONNA DOHERTY 8 8 NDON T VISIT MEDICAL 15 ASSOCIATE MINUTES S OFFICE 84833 SHAKIRA NICK 8 8 NDON IMTIAZ LEVY 30 MEDICAL MINUTES ASSOCIATE S
== END 2017-03-25 02:35 | disposition home or self-care (01) ==
LOC: ER 01:28
PROC: 0HCFXZZ Extirpation of Matter from Right Hand Skin, External Approach (ICD-10-PCS; principal; 2017-03-25)
DX: S60.351A Superficial foreign body of right thumb, initial encounter (principal); E11.9 Type 2 diabetes mellitus without complications